=== PATIENT | female | born 1940 | race Caucasian/White ===

== ENCOUNTER 2019-02-03 11:45 | Inpatient (IN) | payer MEDICARE, BC ==
[~2019-02-03] VITALS: Ht 160 cm; Wt 104.5 kg
[2019-02-03 12:27] LABS: BASOPHILS % (AUTO) 0.1 % (0-1); EOSINOPHILS % (AUTO) 0 % (0-6); HEMATOCRIT 35.8 % (42.0-52.0); HEMOGLOBIN 12.5 g/dl (14.0-17.9); LYMPHOCYTES # (AUTO) 0.1 X10'3 (1.1-4.8); LYMPHOCYTES % (AUTO) 1.4 % (21-51); MEAN CORPUSCULAR HEMOGLOBIN 32.3 PG (27.0-31.0); MEAN CORPUSCULAR HGB CONC 34.9 g/dL (33.0-36.5); MEAN CORPUSCULAR VOLUME 92.6 FL (78-98); MEAN PLATELET VOLUME 8.3 FL (7.4-10.4); MONOCYTES # (AUTO) 0.8 X10'3 (0-0.9); MONOCYTES % (AUTO) 7.5 % (2-12); NEUTROPHILS # (AUTO) 9.6 X10'3 (1.8-7.7); PLATELET COUNT 162 X10'3 (140-440); RED BLOOD COUNT 3.87 X10'6 (4.70-6.10); RED CELL DISTRIBUTION WIDTH 13.4 % (11.5-14.5); WHITE BLOOD COUNT 10.6 X10'3 (4.5-11.0)
[2019-02-03 12:37] LABS: ALANINE AMINOTRANSFERASE 25 U/L (12-78); ALBUMIN 2.2 G/DL (3.4-5.0); ALBUMIN/GLOBULIN RATIO 0.5 (1.1-1.5); ALKALINE PHOSPHATASE 96 IU/L (46-116); ANION GAP 8 (8-16); ASPARTATE AMINO TRANSFERASE 19 U/L (10-37); BILIRUBIN,TOTAL 0.8 MG/DL (0.1-1.0); BLOOD UREA NITROGEN 29 MG/DL (7-18); BUN/CREATININE RATIO 19.7 (5.4-32.0); CHLORIDE 101 MMOL/L (99-107); CREATININE 1.47 MG/DL (0.60-1.10); GLUCOSE 151 MG/DL (70-104); POTASSIUM 3.9 MMOL/L (3.5-5.1); SODIUM 136 MMOL/L (135-145); TOTAL CARBON DIOXIDE 26.8 MMOL/L (24-32); TOTAL PROTEIN 6.9 G/DL (6.4-8.2); eGFR 46 ML/MIN
[2019-02-03 12:48] LABS: PARTIAL THROMBOPLASTIN TIME 35 SECONDS (22-32)
[2019-02-03] MEDS ORDERED: iohexol 350MG/ML 100ml bottle IV ONE (13:31)
--- NOTE | 2019-02-03 13:41 | NUR ---
PT TO CT
[2019-02-03] MEDS ORDERED: predniSONE 20 mg tablet PO ONE (14:00)
[2019-02-03] MEDS ORDERED: ipratropium/albuterol 3ml nebule NEB ONE (14:00)
[2019-02-03] MEDS ORDERED: CefTRIAXone/D5W-Rocephin 1gm 50 ML IV ONE (14:15)
[2019-02-03] MEDS ORDERED: azithromycin/NS 500mg/250ml 250 ML IV ONE (14:15)
--- NOTE | 2019-02-03 14:25 | NUR ---
PT AMBULATORY TO THE BATHROOM WITH STEADY GAIT, PT USED PORTABLE OXYGEN STATES SHE "GOT SORT OF" SOB PT BACK IN BED 13, LAB IS DRAWING FIRST SET OF BLOOD CULTURES, WILL START ABX WHEN LAB IS FINISHED.
[2019-02-03] MEDS ORDERED: CARV-50 PO (14:28)
[2019-02-03] MEDS ORDERED: MULT1TAB74 PO (14:28)
[2019-02-03] MEDS ORDERED: GLUC100017 PO (14:28)
[2019-02-03] MEDS ORDERED: HYDR25TA4 PO (14:28)
[2019-02-03] MEDS ORDERED: TIOT4MIS3 PO (14:28)
[2019-02-03] MEDS ORDERED: HYDR-4353 PO (14:28)
[2019-02-03] MEDS ORDERED: CHOL100046 PO (14:28)
[2019-02-03] MEDS ORDERED: LEVO112T5 PO (14:28)
[2019-02-03] MEDS ORDERED: PIOG15TA67 PO (14:28)
[2019-02-03] MEDS ORDERED: LOSA100T57 PO (14:28)
[2019-02-03] MEDS ORDERED: UMEC1DIS PO (14:28)
[2019-02-03] MEDS ORDERED: ATOR20TA66 PO (14:28)
--- NOTE | 2019-02-03 14:30 | NUR ---
DR STAFFORD AT BEDSIDE FOR EVALATION FOR ADMISSION, RT ALSO AT BEDSIDE FOR BREATHING TREATMENT, LAB HAS DRAWN FIRST BC, STARTED IV ROCEPHEN PER ORDERS.
[2019-02-03] MEDS: potassium cl 20mEq in 1/2 NS 1,000 ML IV SCH (14:43)
[2019-02-03] MEDS ORDERED: potassium Cl 20 mEq SR tablet PO PRN ×2 (14:45)
[2019-02-03] MEDS ORDERED: magnesium Cl slow-release 64mg tablet PO PRN (14:45)
[2019-02-03] MEDS ORDERED: ondansetron/PF 4mg/2ml inj IV PRN (14:45)
[2019-02-03] MEDS ORDERED: magnesium 2GM in 50ml NS 50 ML IV PRN (14:45)
[2019-02-03] MEDS ORDERED: potassium Cl 40MEQ/NS 500ml 500 ML IV PRN (14:45)
[2019-02-03] MEDS ORDERED: mag hydrox/Alum hydrox/simeth 30ml oral suspension PO PRN (14:45)
[2019-02-03] MEDS ORDERED: bisacodyl 10mg suppository rectal RC PRN (14:45)
[2019-02-03] MEDS ORDERED: magnesium 4gm in 100ml NS 100 ML IV PRN (14:45)
[2019-02-03] MEDS ORDERED: acetaminophen 325mg tablet PO PRN (14:45)
[2019-02-03] MEDS ORDERED: potassium CL 10mEq/100ml bag 100 ML IV PRN (14:45)
[2019-02-03] MEDS ORDERED: magnesium hydroxide 30ml (MOM) UD suspension PO PRN (14:45)
[2019-02-03] MEDS ORDERED: dextrose ORAL solution 15 GM/59 ML bottle PO PRN ×2 (15:00)
[2019-02-03] MEDS ORDERED: dextrose 50%-water 50ml dispensing syringe IV PRN ×2 (15:00)
[2019-02-03] MEDS ORDERED: MESSAGE TO PHARMACY PO ONE (15:00)
[2019-02-03] MEDS ORDERED: glucagon, human recombinant 1mg kit SUBCUT PRN (15:00)
[2019-02-03] MEDS: ipratropium/albuterol 3ml nebule NEB SCH ×3 (15:00→23:01)
--- NOTE | 2019-02-03 15:22 | NUR ---
report attempted. NEY Sung to call back for report at [phone]
[2019-02-03 15:56] LABS: HEMOGLOBIN A1C 6.3 % (4.5-6.2)
[2019-02-03 16:11] VITALS: BP 156/63
--- NOTE | 2019-02-03 18:03 | NUR ---
GAVE REPORT TO GEOFF BREWSTER
[2019-02-03 19:30] VITALS: BP 130/56
[2019-02-03] MEDS: docusate sod 100mg capsule PO SCH (20:00)
[2019-02-03] MEDS: methylPREDNISolone sod succ 125mg/2ml vial IV SCH (20:34)
[2019-02-03] MEDS: carVEDilol 12.5mg tablet PO SCH (20:35)
[2019-02-03] MEDS: insulin glargine (Lantus) pen - multi-dose SQ SCH (21:03)
[2019-02-04] VITALS: BP 131/53
[2019-02-04 02:10] LABS: ALBUMIN 1.9 G/DL (3.4-5.0); ANION GAP 8 (8-16); BLOOD UREA NITROGEN 33 MG/DL (7-18); BUN/CREATININE RATIO 24.4 (6.6-38.0); CALCIUM 8.8 MG/DL (8.5-10.1); CHLORIDE 102 MMOL/L (99-107); CREATININE 1.35 MG/DL (0.40-0.90); GLUCOSE 179 MG/DL (70-104); SODIUM 135 MMOL/L (135-145); TOTAL CARBON DIOXIDE 24.7 MMOL/L (24-32); eGFR 38 ML/MIN
[2019-02-04] MEDS: methylPREDNISolone sod succ 125mg/2ml vial IV SCH ×4 (02:12→20:10)
[2019-02-04] MEDS: ipratropium/albuterol 3ml nebule NEB SCH ×6 (03:20→22:48)
[2019-02-04] MEDS: potassium cl 20mEq in 1/2 NS 1,000 ML IV SCH (05:01)
[2019-02-04 06:14] LABS: BASOPHILS % (AUTO) 0.1 % (0-1); EOSINOPHILS % (AUTO) 0 % (0-6); HEMATOCRIT 32.3 % (35.0-45.0); HEMOGLOBIN 10.9 g/dl (12.0-16.0); LYMPHOCYTES # (AUTO) 0.1 X10'3 (1.1-4.8); LYMPHOCYTES % (AUTO) 1.2 % (21-51); MEAN CORPUSCULAR HEMOGLOBIN 31.3 PG (27.0-31.0); MEAN CORPUSCULAR HGB CONC 33.7 g/dL (33.0-36.5); MEAN CORPUSCULAR VOLUME 92.9 FL (78-98); MEAN PLATELET VOLUME 8.7 FL (7.4-10.4); MONOCYTES # (AUTO) 0.3 X10'3 (0-0.9); MONOCYTES % (AUTO) 2.8 % (2-12); NEUTROPHILS # (AUTO) 10.7 X10'3 (1.8-7.7); NEUTROPHILS % (AUTO) 95.9 % (42-75); PLATELET COUNT 159 X10'3 (140-440); RED BLOOD COUNT 3.48 X10'6 (4.20-5.60); RED CELL DISTRIBUTION WIDTH 13.6 % (11.5-14.5); WHITE BLOOD COUNT 11.1 X10'3 (4.5-11.0)
--- NOTE | 2019-02-04 06:50 | NUR ---
Patient in room [facility]. I have received report from Pat RN and had the opportunity to ask questions and assume patient care.
[2019-02-04 07:00] VITALS: BP 99/58
[2019-02-04] MEDS: docusate sod 100mg capsule PO SCH ×2 (08:00→19:56)
[2019-02-04] MEDS: azithromycin/NS 500mg/250ml 250 ML IV SCH (08:00)
[2019-02-04] MEDS: K and/or MAG REPLACEMENT MC SCH (08:00)
[2019-02-04] MEDS ORDERED: non-formulary drug (Tiotropium Br/Olodaterol HCl (Stiolto Respimat Inhal Spray) 2 PUFFS) PO SCH (08:00)
[2019-02-04] MEDS ORDERED: GLUCOSAMINE SULFATE 3000 MG PO SCH (08:00)
[2019-02-04] MEDS: levoTHYROXINE 112mcg tablet PO SCH (08:38)
[2019-02-04] MEDS: HYDROchlorothiazide 25mg tablet PO SCH (08:39)
[2019-02-04] MEDS: CefTRIAXone/D5W-Rocephin 1gm 50 ML IV SCH (08:39)
[2019-02-04] MEDS: losartan 50mg tablet PO SCH (08:39)
[2019-02-04] MEDS: multivitamins, therapeutics tablet PO SCH (08:39)
[2019-02-04] MEDS: atorvastatin 20mg tablet PO SCH (08:40)
[2019-02-04] MEDS: enoxaparin 40mg/0.4ml syringe SUBCUT SCH (08:40)
[2019-02-04] MEDS: carVEDilol 12.5mg tablet PO SCH ×2 (08:40→20:10)
[2019-02-04] MEDS: pantoprazole 40mg Tablet.DR PO SCH (08:49)
--- NOTE | 2019-02-04 08:50 | NUR ---
DM consult: Pt with A1c 6.3; DM ed not warranted at this time. Will continue to follow. Addendum: 02/04/19 at [address] Amended: Links added.
[2019-02-04] MEDS: HYDROcodone/acetaminophen 10/325mg tab PO PRN ×2 (08:56→23:04)
[2019-02-04] MEDS ORDERED: pneumococcal 23-VAL P-sac vacc 25 mcg/0.5ml vial IMVAC ONE ×2 (10:00→13:35)
[2019-02-04 11:00] VITALS: BP 103/49
[2019-02-04] MEDS: insulin Lispro (HumaLOG) vial - multi-dose SQ SCH ×3 (13:25→21:19)
[2019-02-04 18:00] VITALS: BP 119/49
--- NOTE | 2019-02-04 18:30 | NUR ---
Patient in room [facility]. I have received report from NEY Driscoll and had the opportunity to ask questions and assume patient care.
--- NOTE | 2019-02-04 18:49 | NUR ---
Patient continues with care. seen by Dr Doyle. Patient met protocol for DM. Now level 2. Daughter present during shift. patient appears stable. Report given to Bebe BREWSTER
[2019-02-04] MEDS: insulin glargine (Lantus) pen - multi-dose SQ SCH (21:20)
[2019-02-05] VITALS: BP 118/56
[2019-02-05] MEDS: methylPREDNISolone sod succ 125mg/2ml vial IV SCH ×3 (01:55→13:12)
[2019-02-05] MEDS: potassium cl 20mEq in 1/2 NS 1,000 ML IV SCH ×2 (01:56→09:37)
[2019-02-05] MEDS: ipratropium/albuterol 3ml nebule NEB SCH ×3 (02:42→11:38)
[2019-02-05 05:09] LABS: BASOPHILS % (AUTO) 0 % (0-1); EOSINOPHILS % (AUTO) 0.1 % (0-6); HEMATOCRIT 31.1 % (35.0-45.0); HEMOGLOBIN 10.5 g/dl (12.0-16.0); LYMPHOCYTES # (AUTO) 0.1 X10'3 (1.1-4.8); LYMPHOCYTES % (AUTO) 0.8 % (21-51); MEAN CORPUSCULAR HEMOGLOBIN 31.2 PG (27.0-31.0); MEAN CORPUSCULAR HGB CONC 33.7 g/dL (33.0-36.5); MEAN CORPUSCULAR VOLUME 92.8 FL (78-98); MEAN PLATELET VOLUME 8.4 FL (7.4-10.4); MONOCYTES # (AUTO) 0.4 X10'3 (0-0.9); MONOCYTES % (AUTO) 3.5 % (2-12); NEUTROPHILS # (AUTO) 11.8 X10'3 (1.8-7.7); NEUTROPHILS % (AUTO) 95.6 % (42-75); PLATELET COUNT 176 X10'3 (140-440); RED BLOOD COUNT 3.35 X10'6 (4.20-5.60); RED CELL DISTRIBUTION WIDTH 13.7 % (11.5-14.5); WHITE BLOOD COUNT 12.3 X10'3 (4.5-11.0)
[2019-02-05 05:23] LABS: ALBUMIN 1.8 G/DL (3.4-5.0); ANION GAP 7 (8-16); BLOOD UREA NITROGEN 41 MG/DL (7-18); BUN/CREATININE RATIO 27.5 (6.6-38.0); CHLORIDE 103 MMOL/L (99-107); CREATININE 1.49 MG/DL (0.40-0.90); GLUCOSE 196 MG/DL (70-104); POTASSIUM 3.9 MMOL/L (3.5-5.1); SODIUM 136 MMOL/L (135-145); TOTAL CARBON DIOXIDE 25.8 MMOL/L (24-32); eGFR 34 ML/MIN
[2019-02-05 06:30] VITALS: BP 140/73
--- NOTE | 2019-02-05 06:30 | NUR ---
Patient in room [facility]. I have received report from NEY Spence and had the opportunity to ask questions and assume patient care.
--- NOTE | 2019-02-05 06:51 | NUR ---
Problems reprioritized. Patient report given, questions answered & plan of care reviewed with NEY Melendrez.
[2019-02-05] MEDS: K and/or MAG REPLACEMENT MC SCH (06:53)
[2019-02-05] MEDS ORDERED: vitamin D (cholecalciferol) 1,000 unit tablet PO SCH (08:00)
[2019-02-05] MEDS: docusate sod 100mg capsule PO SCH (08:00)
[2019-02-05] MEDS: HYDROchlorothiazide 25mg tablet PO SCH (08:23)
[2019-02-05] MEDS: pantoprazole 40mg Tablet.DR PO SCH (08:23)
[2019-02-05] MEDS: levoTHYROXINE 112mcg tablet PO SCH (08:23)
[2019-02-05] MEDS: atorvastatin 20mg tablet PO SCH (08:24)
[2019-02-05] MEDS: carVEDilol 12.5mg tablet PO SCH (08:24)
[2019-02-05] MEDS: multivitamins, therapeutics tablet PO SCH (08:24)
[2019-02-05] MEDS: losartan 50mg tablet PO SCH (08:24)
[2019-02-05] MEDS: enoxaparin 40mg/0.4ml syringe SUBCUT SCH (08:25)
[2019-02-05] MEDS: CefTRIAXone/D5W-Rocephin 1gm 50 ML IV SCH (08:28)
[2019-02-05] MEDS: insulin Lispro (HumaLOG) vial - multi-dose SQ SCH ×2 (08:36→13:17)
[2019-02-05] MEDS: azithromycin/NS 500mg/250ml 250 ML IV SCH (09:18)
[2019-02-05 11:30] VITALS: BP 131/69
[2019-02-05] MEDS ORDERED: ALBU6.7H INH (11:44)
[2019-02-05] MEDS ORDERED: OMEP20TA23 PO (11:44)
[2019-02-05] MEDS ORDERED: PRED10TA23 PO (11:44)
[2019-02-05] MEDS ORDERED: AMOX-580 PO (11:44)
--- NOTE | 2019-02-05 15:08 | NUR ---
Patients discharge instructions reviewed with patient and patients daughter at bedside. Patients medications called into [facility] [address] spoke to Tani. Patients IV dc'd x2 cannula intact however the one on the had did swell a little and bruised. Patient advised to elevate and keep an eye on the area. Patient being taken to vehicle via wheelchair. Patient and daughter were shown how to use the portable oxygen that was delivered for her and patient connected. Addendum: 02/05/19 at 1517 by Narda Foley RN Patient aware to continue her home inhalers and to fruit or nut picker her rescue inhaler from Pharmacy as prescribed by
== END 2019-02-05 15:15 | disposition home health service (06) | DRG 189 ==
LOC: ER 11:46 → SUR 3N 15:15 → EDSEX 15:15 → EDBEDREQ 15:48
PROVIDERS: ADMIT Internal Medicine; ATTEND Internal Medicine
PROC: B32T1ZZ Computerized Tomography (CT Scan) of Left Pulmonary Artery using Low Osmolar Contrast (ICD-10-PCS; 2019-02-03)
PROC: B3201ZZ Computerized Tomography (CT Scan) of Thoracic Aorta using Low Osmolar Contrast (ICD-10-PCS; 2019-02-03)
PROC: B32S1ZZ Computerized Tomography (CT Scan) of Right Pulmonary Artery using Low Osmolar Contrast (ICD-10-PCS; 2019-02-03)
PROC: 3E0234Z Introduction of Serum, Toxoid and Vaccine into Muscle, Percutaneous Approach (ICD-10-PCS; principal; 2019-02-04)
DX: J96.21 Acute and chronic respiratory failure with hypoxia (principal); J18.1 Lobar pneumonia, unspecified organism; N17.9 Acute kidney failure, unspecified; J43.9 Emphysema, unspecified; E03.9 Hypothyroidism, unspecified; E11.9 Type 2 diabetes mellitus without complications; Z66 Do not resuscitate; I10 Essential (primary) hypertension; Z85.118 Personal history of other malignant neoplasm of bronchus and lung; Z87.891 Personal history of nicotine dependence; Z92.21 Personal history of antineoplastic chemotherapy; Z92.3 Personal history of irradiation; Z99.81 Dependence on supplemental oxygen; Z23 Encounter for immunization
CPT/HCPCS: 36415; 71045; 71275; 80048; 80053; 82948; 83036; 83605; 83735; 83880; 84145; 84484; 85025; 85610; 85730; 87040; 87070; 90732; 93005; 94640; 94667; 94760; 96365; 96368; 99285; G0378; J0456; J0696; J1650; J1815; J2930; J7512; Q9967

== ENCOUNTER 2019-09-18 08:37 | Day surgery (SDC) | payer MEDICARE, BC ==
[2019-09-15 12:52] LABS: BASOPHILS % (AUTO) 0.4 % (0-1); EOSINOPHILS # (AUTO) 0.1 X10'3 (0-0.9); EOSINOPHILS % (AUTO) 2.9 % (0-6); HEMATOCRIT 42.7 % (35.0-45.0); HEMOGLOBIN 14.3 g/dl (12.0-16.0); LYMPHOCYTES # (AUTO) 0.6 X10'3 (1.1-4.8); LYMPHOCYTES % (AUTO) 12.4 % (21-51); MEAN CORPUSCULAR HEMOGLOBIN 30.9 PG (27.0-31.0); MEAN CORPUSCULAR HGB CONC 33.6 g/dL (33.0-36.5); MEAN CORPUSCULAR VOLUME 92.1 FL (78-98); MEAN PLATELET VOLUME 8.6 FL (7.4-10.4); MONOCYTES # (AUTO) 0.4 X10'3 (0-0.9); NEUTROPHILS % (AUTO) 77.3 % (42-75); PLATELET COUNT 202 X10'3 (140-440); RED BLOOD COUNT 4.64 X10'6 (4.20-5.60); RED CELL DISTRIBUTION WIDTH 14.3 % (11.5-14.5); WHITE BLOOD COUNT 5.1 X10'3 (4.5-11.0)
[2019-09-15 13:07] LABS: PARTIAL THROMBOPLASTIN TIME 26 SECONDS (22-32)
[2019-09-15 13:13] LABS: ALBUMIN 3.4 G/DL (3.4-5.0); ANION GAP 9 (8-16); BLOOD UREA NITROGEN 29 MG/DL (7-18); BUN/CREATININE RATIO 23.8 (6.6-38.0); CALCIUM 8.9 MG/DL (8.5-10.1); CHLORIDE 108 MMOL/L (99-107); CREATININE 1.22 MG/DL (0.40-0.90); GLUCOSE 98 MG/DL (70-104); POTASSIUM 4.4 MMOL/L (3.5-5.1); SODIUM 144 MMOL/L (135-145); TOTAL CARBON DIOXIDE 27.3 MMOL/L (24-32); eGFR 42 ML/MIN
[2019-09-18] VITALS (11 sets, daily range): BP systolic 141–157; BP diastolic 51–70
[~2019-09-18] VITALS: Ht 157.5 cm; Wt 106.0 kg
[~2019-09-18 08:37] MED LIST: ALBU6.7H9 INH; ATOR20TA66 PO; CARV-50 PO; CHOL100046 PO; GLUC100017 PO; HYDR-4353 PO; HYDR25TA4 PO; LEVO112T5 PO; LOSA100T57 PO; MULT1TAB74 PO; OMEP20TA23 PO; PIOG15TA67 PO; TIOT4MIS3 PO
[2019-09-18] MEDS ORDERED: diphenhydrAMINE 25mg capsule PO PRN (09:05)
[2019-09-18] MEDS ORDERED: LORazepam 0.5 MG tablet PO PRN (09:05)
[2019-09-18] MEDS ORDERED: normal saline 1,000 ML IV SCH (09:05)
[2019-09-18] MEDS ORDERED: LIDOcaine/PRILOcaine 5gm cream TP ONE (09:25)
[2019-09-18] MEDS ORDERED: midazolam 2 mg/2 ml injection ONE (09:29)
[2019-09-18] MEDS ORDERED: fentaNYL/PF 50MCG/1 ML 2ML syringe ONE (09:30)
[2019-09-18] MEDS ORDERED: LIDOcaine 1% (10mg/ml)w/preservative injection 20ml MDV ONE (09:30)
[2019-09-18] MEDS ORDERED: iohexol 350MG/ML 100ml bottle IV ONE (09:30)
[2019-09-18] MEDS ORDERED: heparin 1,000unit/ml 10ml vial 10 ML ONE (09:30)
[2019-09-18] MEDS ORDERED: nitroGLYCERIN-Tridil 50MG/D5W 250 ML IV ONE (09:30)
[2019-09-18] MEDS ORDERED: verapamil 2.5 mg/ml inj IV ONE (09:51)
[2019-09-18 10:31] LABS: ISTAT Hct MIX 37 %PCV (35-48); ISTAT O2 SATURATION MIX VENOUS 69 % (60-80); ISTAT SOURCE MIX
[2019-09-18 10:31] LABS: ISTAT HGB ART 12.6 g/dl (12.0-16.0); ISTAT Hct ART 37 %PCV (35-48); ISTAT O2 SATURATION ARTERIAL 98 % (95-98); ISTAT SOURCE ART
== END 2019-09-18 15:00 | disposition home or self-care (01) ==
LOC: SSTAY O 08:37
PROVIDERS: ATTEND Internal Medicine Cardiovascular Disease
DX: R94.39 Abnormal result of other cardiovascular function study (principal); I25.10 Atherosclerotic heart disease of native coronary artery without angina pectoris; E11.9 Type 2 diabetes mellitus without complications; I10 Essential (primary) hypertension; E78.5 Hyperlipidemia, unspecified; E03.9 Hypothyroidism, unspecified; E66.9 Obesity, unspecified; Z68.41 Body mass index [BMI] 40.0-44.9, adult; Z85.118 Personal history of other malignant neoplasm of bronchus and lung; Z79.899 Other long term (current) drug therapy; Z87.891 Personal history of nicotine dependence; Z79.01 Long term (current) use of anticoagulants
CPT/HCPCS: 36415; 80048; 82803; 82948; 85014; 85025; 85610; 85730; 93005; 93460; C1769; C1894; J1644; J2001; J2250; J3010; J7030; Q0163; Q9967; 99152; 99153; A4620; A5120; A6258; J3490

== ENCOUNTER 2023-11-30 18:40 | Emergency (ER) | payer MEDICARE ==
[~2023-11-30] VITALS: Ht 160 cm; Wt 100.0 kg
[~2023-11-30 18:40] MED LIST changes: -ALBU6.7H9 INH; -CHOL100046 PO; -LOSA100T57 PO; +LOSA100T58 PO; +MULT-620 PO; -MULT1TAB74 PO; -OMEP20TA23 PO
[2023-11-30 20:02] VITALS: TEMP 98
[2023-11-30] MEDS: morphine 2 MG/ML inj. syringe IM ONE (21:37)
[2023-11-30] MEDS: ondansetron 4mg rapidly disintigrating tab PO ONE (21:37)
[2023-11-30] MEDS ORDERED: CYCL-1 PO (23:32)
[2023-11-30] MEDS: HYDROmorphone inj. 0.5 MG/0.5 ML DISP.SYRIN IM ONE (23:42)
[2023-11-30] MEDS ORDERED: PRED20TA PO (23:58)
[2023-12-01] MEDS: cyclobenzaprine 10mg tablet PO ONE (00:09)
[2023-12-01] MEDS: predniSONE 20 mg tablet PO ONE (00:09)
[2023-12-01 00:37] VITALS: BP 143/64; PULSE 90; RESP 18; O2SAT 96
== END 2023-12-01 00:38 | disposition home or self-care (01) ==
LOC: ER 18:41
DX: M54.6 Pain in thoracic spine (principal); E11.9 Type 2 diabetes mellitus without complications; I10 Essential (primary) hypertension; E07.9 Disorder of thyroid, unspecified; Z85.118 Personal history of other malignant neoplasm of bronchus and lung
CPT/HCPCS: 72074; 96372; 99284; J1170; J2270; J7512; 99283